=== PATIENT | female | born 1950 | race Caucasian/White ===

== ENCOUNTER 2016-08-06 04:35 | Emergency (ER) | payer MEDICARE, BC ==
[~2016-08-06] VITALS: Wt 75.0 kg
[~2016-08-06 04:35] MED LIST: FAMO-95 PO; LEVO50TA74 PO; OMEP40CA6 PO
--- NOTE | 2016-08-06 04:44 | ERD ---
ER Documentation Chief Complaint Date/Time DATE: 08/06/16 TIME: 04:44 Chief Complaint Painful urination HPI This is a 66-year-old female with history of hypothyroidism and recent breast biopsy 2 weeks ago presenting to the emergency department complaining of painful urination, urgency frequency for the past 2 days. She noted hematuria today. Patient rates painful urination moderate in severity. She denies any pelvic/abdominal pain, flank pain or fevers. ROS All systems reviewed and are negative except as per history of present illness. Medications Home Meds Active Scripts Phenazopyridine Hcl* (Pyridium*) 200 Mg Tab, 200 MG PO TID Y for URINARY PAIN, # 6 TAB Prov:MELANIE RAZA PA-C 08/06/16 Cephalexin* (Keflex*) 500 Mg Capsule, 500 MG PO TID for 10 Days, CAP Prov:MELANIE RAZA PA-C 08/06/16 Famotidine* (Pepcid* AC) 20 Mg Tab, 20 MG PO DAILY for 30 Days Prov:ED STAUFFER 12/09/13 Reported Medications Omeprazole* (Omeprazole*) 40 Mg Capsule.dr, 40 MG PO DAILY, CAP 12/16/14 Levothyroxine Sodium* (Levothyroxine Sodium*) 50 Mcg Tablet, 50 MCG PO DAILY 05/16/12 Allergies Allergies: Coded Allergies: aspirin (Verified Allergy, Unknown, 12/08/13) PMhx/Soc History of Surgery: Yes (APPENDECTOMY) Anesthesia Reaction: No Hx Neurological Disorder: No Hx Respiratory Disorders: No Hx Cardiac Disorders: No Hx Psychiatric Problems: No Hx Miscellaneous Medical Probl: No Hx Alcohol Use: No Hx Substance Use: No Hx Tobacco Use: No Physical Exam Vitals Vital Signs Date Time Temp Pulse Resp B/P Pulse Ox O2 Delivery O2 Flow Rate FiO2 08/06/16 04:40 99.2 81 20 138/66 99 Physical Exam GENERAL: well-developed/well-nourished, in no apparent distress, non-toxic appearing HENT: NC/AT, moist mucous membranes EYES: Conjunctiva normal NECK: Supple, no lymphadenopathy PULM: CTA bilaterally, no rales, rhonchi, or wheezing heard CV: Normal S1S2, RRR, good capillary refill GI: Soft, non-distended, non-tender to palpation Normal bowel sounds, no masses or organomegaly felt on exam No gross peritonitis, no bruits Negative Rovsing, negative Santo, negative McBurney's point, Negative CVAT BACK: No masses EXT: No clubbing, cyanosis, or edema NEURO: Alert and Orientated SKIN: Intact, normal turgor PSYCH: Normal mood and mentation Procedures/MDM This is a 66-year-old female with history of hypothyroidism and recent breast biopsy 2 weeks ago presenting to the emergency department complaining of painful urination, urgency frequency for the past 2 days, likely due to a urinary tract infection. Low suspicion for pyelonephritis, nephrolithiasis, ovarian torsion due to physical examination and diagnostic testing. Urine dipstick was positive for urinary tract infection. Urine culture was sent out. Patient is hemodynamically stable for discharge for home. Prescriptions Keflex and Pyridium have been given to take as directed. Strict precautions were given to return to the ER if not improving as expected or for any worsening signs and symptoms Departure Diagnosis: Primary Impression: UTI (urinary tract infection) Condition: Stable MELANIE RAZA PA-C August 06, 2016 04:44
[2016-08-06] MEDS ORDERED: CEPH-443 PO (04:48)
[2016-08-06] MEDS ORDERED: PHEN-538 PO (04:48)
[2016-08-06 04:58] LABS: URINE BLOOD (Dip) POC 3+ (NEGATIVE)
== END 2016-08-06 05:13 | disposition home or self-care (01) ==
LOC: FTE 04:35
DX: N39.0 Urinary tract infection, site not specified (principal); E03.9 Hypothyroidism, unspecified
CPT/HCPCS: 81003; 87086; 99283